=== PATIENT | male | born 1960 | race African-American/Black ===

== ENCOUNTER 2021-08-07 11:54 | Outpatient (CLI) | payer BC | END 2021-08-07 11:55 | disposition home or self-care (01) | LOC: BURRAD 11:54 | PROVIDERS: ATTEND Family Medicine | DX: M25.511 Pain in right shoulder (principal); M19.011 Primary osteoarthritis, right shoulder ==

== ENCOUNTER 2022-06-17 10:30 | Outpatient (CLI) | payer OTHER | END 2022-06-17 10:31 | disposition home or self-care (01) | LOC: BURRAD 10:30 | PROVIDERS: ATTEND Nurse Practitioner Family | DX: M79.672 Pain in left foot (principal) ==